=== PATIENT | male | born 1950 | race Caucasian/White ===

== ENCOUNTER 2021-04-03 19:43 | Inpatient (IN) | payer MEDICARE, OTHER ==
[~2021-04-03 19:43] MED LIST: Iopamidol-370 76% 500 ML 1 ML ONE
[2021-04-03 19:57] LABS: #Eosinphils 0.2 thou/uL (0.0-0.7); #Lymphocytes 3.3 thou/uL (1.20-3.40); #Monocytes 0.8 thou/uL (0.11-0.59); #Neutrophils 3.5 thou/uL (1.40-6.50); %Basophils 0.6 % (0.0-1.0); %Lymphocytes 41.7 % (21.0-51.0); %Monocytes 10.7 % (0.0-10.0); %Neutrophils 43.9 % (42.0-75.0); Hemoglobin 15.6 g/dL (14.0-18.0); Mean Corpuscular HGB CONC 34.6 g/dL (32.0-36.0); Mean Corpuscular Hemoglobin 33.5 pg (27.0-31.0); Mean Corpuscular Volume 96.7 fL (78.0-98.0); Red Blood Cell (RBC) Count 4.65 mill/uL (4.70-6.10); White Blood Cell (WBC) Count 7.9 thou/uL (4.8-10.8)
[2021-04-03 20:07] LABS: PTT 23.1 sec (22.9-36.1); Prothrombin Time 13.6 sec (12.0-14.7)
[2021-04-03 20:11] LABS: ALT (SGPT) 12 U/L (8-55); AST (SGOT) 17 U/L (5-34); Albumin 4.5 g/dL (3.4-4.8); Alkaline Phosphatase 38 U/L (40-110); Anion Gap 18 mmol/L (10-20); BUN (Urea Nitrogen) 28 mg/dL (8.4-25.7); Bilirubin, Total 0.6 mg/dL (0.2-1.2); Calc. Creatinine Clearance 0 mL/min (70-130); Calcium 9.4 mg/dL (7.8-10.44); Carbon Dioxide 15 mmol/L (23-31); Chloride 108 mmol/L (98-107); Globulin 2.5 g/dL (2.4-3.5); Glucose 184 mg/dL (80-115); Potassium 3.4 mmol/L (3.5-5.1); Sodium 138 mmol/L (136-145)
[2021-04-03 20:12] LABS: Mean Platelet Volume 8.8 fL (7.4-10.4); Platelet Count 118 thou/uL (130-400)
[2021-04-03] MEDS ORDERED: Sodium Chloride 0.9% 10 ML ONE (20:12)
[2021-04-03 20:13] LABS: Platelet Morphology Comment Appears Decreased; RBC Morphology Normal
[2021-04-03] MEDS ORDERED: Fentanyl CADD 100 ML IV SCH (20:15)
[2021-04-03] MEDS ORDERED: Fentanyl 250 MCG/5 ML VIAL ONE (20:18)
[2021-04-03] MEDS ORDERED: manNITOL 20% 500 ML ONE (20:18)
[2021-04-03] MEDS ORDERED: levETIRAcetam in NS 100 ML ONE (20:20)
[2021-04-03] MEDS ORDERED: Albumin 5% 500 ML ONE (20:20)
[2021-04-03] MEDS ORDERED: levETIRAcetam 500 MG/100 ML PREMIX BAG ONE (20:20)
[2021-04-03 20:22] LABS: Acetaminophen Less than 6.0 mcg/mL (10.0-30.0); Alcohol 95 mg/dL (Less than 10); Salicylate Less than 8.0 mg/dL (15.0-30.0)
[2021-04-03 20:23] LABS: Analyzer IN Cardio ER; Base Excess (BEa) -8.4 mEq/L (-2.0 to +3.0); CO2 Tension 30.6 mmHg (35.0-45.0); Carboxyhemoglobin (COHb) 0.2 gm% (0.0-3.0); Hemoglobin (Hb) 14.8 g/dL (14.0-18.0); O2 Tension (PaO2), arterial 254.4 mmHg (> 80.0); Potassium - ABG Lab 3.22 mmol/L (3.70-5.30); pH, Arterial 7.34 (7.35-7.45)
[2021-04-03] MEDS ORDERED: Propofol 1,000 MG/100 ML VIAL IV ONE (20:27)
[2021-04-03] MEDS ORDERED: Fentanyl 100 MCG/2 ML VIAL ONE (20:30)
[2021-04-03 20:37] LABS: Bilirubin Negative (Negative); Blood, Urine Negative (Negative); Clarity Clear (Clear); Glucose, Urine (Dipstick) Greater than 1000 mg/dL (Negative); Ketone, Urine Negative (Negative); Leukocyte Negative Leu/uL (Negative); Nitrite Negative (Negative); Protein, Urine (Dipstick) Negative (Neg-Trace); Specific Gravity, Urine 1.037 (1.002-1.036); Urobilinogen Normal mg/dL (Less than 2)
[2021-04-03 20:40] LABS: Puncture Site LRA
[2021-04-03 20:44] LABS: Amphetamine Not Detected (NotDetected); Barbiturates Screen Not Detected (NotDetected); Benzodiazepine Screen Not Detected (NotDetected); Cocaine Metabolite Screen Not Detected (NotDetected); Medtox Control Line Valid? VALID (VALID); Medtox Reader # READER 4; Methadone Not Detected (NotDetected); Methamphetamine Not Detected (NotDetected); Opiate Screen Not Detected (NotDetected); Oxycodone Screen Not Detected (NotDetected); Phencyclidine (PCP) Not Detected (NotDetected); THC/Cannabinoid Screen Not Detected (NotDetected); Tricyclic Screen Not Detected (NotDetected)
[2021-04-03] MEDS ORDERED: Vecuronium 10 MG VIAL ONE (20:57)
[2021-04-03] MEDS ORDERED: PHENYLEPHRINE-NS 100 MCG/ML 10 ML SYRINGE ONE (20:57)
[2021-04-03] MEDS ORDERED: Dexamethasone 20 MG/5 ML VIAL ONE (20:57)
[2021-04-03] MEDS ORDERED: Dextrose 5% in Water 1,000 ML IV PRN (22:07)
[2021-04-03] MEDS ORDERED: Dextrose 50% Abboject 50 ML SYRINGE SLOW IVP PRN (22:07)
[2021-04-03] MEDS ORDERED: Ventilator Sedation Protocol 1 EACH FS SCH (22:07)
[2021-04-03] MEDS ORDERED: Ondansetron PF 4 MG/2 ML Vial IVP PRN (22:07)
[2021-04-03] MEDS ORDERED: HumaLOG 300 UNITS/3 ML VIAL SC PRN (22:07)
[2021-04-03] MEDS ORDERED: Ondansetron ODT 4 MG TAB PO PRN (22:07)
[2021-04-03 22:32] LABS: Magnesium 1.6 mg/dL (1.6-2.6)
[2021-04-03 22:51] LABS: SARS-CoV-2 NAA Rapid Test Not Detected (NotDetected)
[2021-04-03] MEDS: Sodium Chloride 0.9% 1,000 ML IV SCH (23:17)
[2021-04-03 23:35] LABS: Actual Bicarbonate (HCO3a) 17.8 mEq/L (22-28); Base Excess (BEa) -6.8 mEq/L (-2.0 to +3.0); CO2 Tension 33.2 mmHg (35.0-45.0); Calcium, Ionized (arterial) 1.18 mmol/L (1.12-1.30); Hemoglobin (Hb) 14.5 g/dL (14.0-18.0); O2 Tension (PaO2), arterial 129.3 mmHg (> 80.0); Potassium - ABG Lab 3.77 mmol/L (3.70-5.30); pH, Arterial 7.35 (7.35-7.45)
[2021-04-03 23:45] LABS: Puncture Site LRA
[2021-04-04] MEDS ORDERED: Fentanyl CADD 100 ML ONE (00:22)
[2021-04-04] MEDS: HumaLOG 300 UNITS/3 ML VIAL SC PRN ×2 (00:25→04:24)
[2021-04-04 04:23] LABS: #Lymphocytes 1.2 thou/uL (1.20-3.40); #Monocytes 1.2 thou/uL (0.11-0.59); %Basophils 0.2 % (0.0-1.0); %Eosinophils 0.1 % (0.0-10.0); %Lymphocytes 6.8 % (21.0-51.0); %Monocytes 6.9 % (0.0-10.0); Hemoglobin 15.4 g/dL (14.0-18.0); Mean Corpuscular HGB CONC 33.7 g/dL (32.0-36.0); Mean Corpuscular Hemoglobin 32.9 pg (27.0-31.0); Mean Corpuscular Volume 97.5 fL (78.0-98.0); Mean Platelet Volume 9.5 fL (7.4-10.4); Platelet Count 140 thou/uL (130-400); Red Blood Cell (RBC) Count 4.67 mill/uL (4.70-6.10); White Blood Cell (WBC) Count 17.4 thou/uL (4.8-10.8)
[2021-04-04] MEDS: Sodium Chloride 0.9% 1,000 ML IV SCH ×3 (05:04→16:23)
[2021-04-04] MEDS ORDERED: CEFAZOLIN 2 GM in Premix Bag 1 BAG IVPB SCH (06:00)
[2021-04-04] MEDS ORDERED: Insulin Regular 300 UNITS/3 ML VIAL SC PRN ×2 (06:40)
[2021-04-04 06:54] LABS: ALV-art Gradient 107.175 mmHg (0-20); Actual Bicarbonate (HCO3a) 16.8 mEq/L (22-28); Base Excess (BEa) -6.9 mEq/L (-2.0 to +3.0); CO2 Tension 29.7 mmHg (35.0-45.0); Calcium, Ionized (arterial) 1.18 mmol/L (1.12-1.30); Carboxyhemoglobin (COHb) 0.7 gm% (0.0-3.0); Hemoglobin (Hb) 15.4 g/dL (14.0-18.0); O2 Tension (PaO2), arterial 140.9 mmHg (> 80.0); Potassium - ABG Lab 3.77 mmol/L (3.70-5.30); Puncture Site LRA; pH, Arterial 7.37 (7.35-7.45)
[2021-04-04 07:39] LABS: Chloride 107 mmol/L (98-107); Potassium 3.8 mmol/L (3.5-5.1); Sodium 140 mmol/L (136-145)
[2021-04-04 07:40] LABS: Calcium 9.2 mg/dL (7.8-10.44); Glucose 271 mg/dL (80-115)
[2021-04-04 07:41] LABS: Anion Gap 23 mmol/L (10-20); Carbon Dioxide 14 mmol/L (23-31)
[2021-04-04 07:43] LABS: Calc. Creatinine Clearance 64 mL/min (70-130)
[2021-04-04 07:44] LABS: BUN (Urea Nitrogen) 28 mg/dL (8.4-25.7)
[2021-04-04 07:45] LABS: Magnesium 1.7 mg/dL (1.6-2.6)
[2021-04-04] MEDS: Famotidine/PF 20 mg/2ml Vial SLOW IVP SCH ×2 (08:13→20:44)
[2021-04-04 08:25] LABS: Phosphorus 5.4 mg/dL (2.3-4.7)
[2021-04-04] MEDS: HUMULIN R 100 UNITS in Sodium Chloride 0.9% 100 ML IVPB SCH (08:46)
[2021-04-04] MEDS ORDERED: Calcium Chloride 1 GM/10 ML Abboject SYRINGE IVP SCH (11:15)
[2021-04-04 11:38] LABS: Actual Bicarbonate (HCO3a) 18.2 mEq/L (22-28); Base Excess (BEa) -5.4 mEq/L (-2.0 to +3.0); CO2 Tension 30.7 mmHg (35.0-45.0); Calcium, Ionized (arterial) 1.13 mmol/L (1.12-1.30); Carboxyhemoglobin (COHb) 0.6 gm% (0.0-3.0); Hemoglobin (Hb) 14.9 g/dL (14.0-18.0); O2 Tension (PaO2), arterial 134.2 mmHg (> 80.0); Potassium - ABG Lab 3.55 mmol/L (3.70-5.30); pH, Arterial 7.39 (7.35-7.45)
[2021-04-04] MEDS ORDERED: Acetaminophen 650 MG/20.3 ML UDCUP PO SCH (12:00)
[2021-04-04] MEDS ORDERED: Calcium Chloride 13.6 MEQ in Sodium Chloride 0.9% 100 ML IVPB SCH (12:15)
[2021-04-04] MEDS: Acetaminophen 650 MG/20.3 ML UDCUP PO SCH ×3 (12:15→22:33)
[2021-04-04 14:13] LABS: ALV-art Gradient 112.625 mmHg (0-20); Puncture Site LRA
[2021-04-04 15:19] LABS: Magnesium 1.6 mg/dL (1.6-2.6); Phosphorus 3.1 mg/dL (2.3-4.7)
[2021-04-04] MEDS ORDERED: Magnesium Sulfate 4 GM in Sodium Chloride 0.9% 250 ML 250 ML IVPB SCH (15:45)
[2021-04-04] MEDS ORDERED: Albumin 5% 500 ML ONE (15:55)
[2021-04-04] MEDS ORDERED: Calcium Chloride 1 GM/10 ML Abboject SYRINGE ONE (16:10)
[2021-04-04] MEDS ORDERED: Piperacillin/Tazobactam 3.375 GM in Sodium Chloride 0.9% 100 ML IVPB SCH (22:00)
[2021-04-05] MEDS: Sodium Chloride 0.9% 1,000 ML IV SCH ×3 (00:44→21:31)
[2021-04-05] MEDS: Piperacillin/Tazobactam 3.375 GM in Sodium Chloride 0.9% 100 ML IVPB SCH ×3 (01:22→17:09)
[2021-04-05] MEDS: HUMULIN R 100 UNITS in Sodium Chloride 0.9% 100 ML IVPB SCH (02:19)
[2021-04-05 03:57] LABS: #Lymphocytes 0.8 thou/uL (1.20-3.40); #Monocytes 1.2 thou/uL (0.11-0.59); #Neutrophils 9.6 thou/uL (1.40-6.50); %Eosinophils 0.2 % (0.0-10.0); %Lymphocytes 6.7 % (21.0-51.0); %Monocytes 10.3 % (0.0-10.0); %Neutrophils 82.7 % (42.0-75.0); Hemoglobin 12.6 g/dL (14.0-18.0); Mean Corpuscular HGB CONC 33.4 g/dL (32.0-36.0); Mean Corpuscular Hemoglobin 32.9 pg (27.0-31.0); Mean Corpuscular Volume 98.5 fL (78.0-98.0); Mean Platelet Volume 9.3 fL (7.4-10.4); Platelet Count 121 thou/uL (130-400); RBC Distribution Width 12.3 % (11.5-14.5); Red Blood Cell (RBC) Count 3.82 mill/uL (4.70-6.10); White Blood Cell (WBC) Count 11.6 thou/uL (4.8-10.8)
[2021-04-05 04:14] LABS: Anion Gap 13 mmol/L (10-20); BUN (Urea Nitrogen) 29 mg/dL (8.4-25.7); Calc. Creatinine Clearance 62 mL/min (70-130); Calcium 9.6 mg/dL (7.8-10.44); Carbon Dioxide 21 mmol/L (23-31); Chloride 115 mmol/L (98-107); Glucose 155 mg/dL (80-115); Magnesium 2.3 mg/dL (1.6-2.6); Phosphorus 2.6 mg/dL (2.3-4.7); Potassium 3.2 mmol/L (3.5-5.1); Sodium 146 mmol/L (136-145)
[2021-04-05] MEDS: Acetaminophen 650 MG/20.3 ML UDCUP PO SCH ×3 (05:30→17:09)
[2021-04-05] MEDS: Famotidine/PF 20 mg/2ml Vial SLOW IVP SCH ×2 (08:36→21:25)
[2021-04-05] MEDS ORDERED: Morphine 2 MG/ML VIAL SLOW IVP PRN (08:39)
[2021-04-05] MEDS ORDERED: Lorazepam 2 MG/ML VIAL ONE (08:49)
[2021-04-05] MEDS ORDERED: Potassium Phosphate 30 MMOL in Sodium Chloride 0.9% 250 ML 250 ML IVPB SCH (09:00)
[2021-04-05] MEDS ORDERED: Lorazepam 2 MG/ML VIAL SLOW IVP SCH (09:00)
[2021-04-05] MEDS ORDERED: niCARdipine 25 MG in Sodium Chloride 0.9% 250 ML 250 ML IVPB SCH (09:00)
[2021-04-05] MEDS: levETIRAcetam in NS 1,000 MG in Premix Bag 1 BAG IVPB SCH ×2 (09:49→21:26)
[2021-04-05] MEDS: Lorazepam 2 MG/ML VIAL SLOW IVP PRN (17:45)
[2021-04-06] MEDS: Acetaminophen 650 MG/20.3 ML UDCUP PO SCH ×4 (00:04→16:01)
[2021-04-06] MEDS: Lorazepam 2 MG/ML VIAL SLOW IVP PRN ×2 (01:07→22:42)
[2021-04-06] MEDS: Piperacillin/Tazobactam 3.375 GM in Sodium Chloride 0.9% 100 ML IVPB SCH ×3 (01:13→16:01)
[2021-04-06 04:56] LABS: #Lymphocytes 0.5 thou/uL (1.20-3.40); #Monocytes 0.5 thou/uL (0.11-0.59); #Neutrophils 5.4 thou/uL (1.40-6.50); %Eosinophils 0.2 % (0.0-10.0); %Lymphocytes 8.4 % (21.0-51.0); %Monocytes 7.4 % (0.0-10.0); Hemoglobin 10.9 g/dL (14.0-18.0); Mean Corpuscular Hemoglobin 33.3 pg (27.0-31.0); Mean Platelet Volume 9.4 fL (7.4-10.4); Platelet Count 90 thou/uL (130-400); RBC Distribution Width 12.3 % (11.5-14.5); Red Blood Cell (RBC) Count 3.27 mill/uL (4.70-6.10); White Blood Cell (WBC) Count 6.4 thou/uL (4.8-10.8)
[2021-04-06 05:05] LABS: Anion Gap 14 mmol/L (10-20); BUN (Urea Nitrogen) 29 mg/dL (8.4-25.7); Calc. Creatinine Clearance 69 mL/min (70-130); Calcium 8.9 mg/dL (7.8-10.44); Carbon Dioxide 21 mmol/L (23-31); Chloride 123 mmol/L (98-107); Glucose 218 mg/dL (80-115); Magnesium 5.7 mg/dL (1.6-2.6); Phosphorus 2.5 mg/dL (2.3-4.7); Potassium 3.8 mmol/L (3.5-5.1); Sodium 154 mmol/L (136-145)
[2021-04-06] MEDS: Sodium Chloride 0.9% 1,000 ML IV SCH (05:42)
[2021-04-06] MEDS ORDERED: HumaLOG 300 UNITS/3 ML VIAL SC PRN (07:45)
[2021-04-06 08:48] LABS: Chloride 124 mmol/L (98-107); Potassium 3.6 mmol/L (3.5-5.1); Sodium 155 mmol/L (136-145)
[2021-04-06 08:54] LABS: BUN (Urea Nitrogen) 27 mg/dL (8.4-25.7); Calc. Creatinine Clearance 76 mL/min (70-130); Calcium 8.8 mg/dL (7.8-10.44); Carbon Dioxide Greater than 37 mmol/L (23-31); Glucose 172 mg/dL (80-115); Magnesium 2.2 mg/dL (1.6-2.6); Phosphorus 1.9 mg/dL (2.3-4.7)
[2021-04-06] MEDS: Famotidine/PF 20 mg/2ml Vial SLOW IVP SCH ×2 (09:57→21:39)
[2021-04-06] MEDS: levETIRAcetam in NS 1,000 MG in Premix Bag 1 BAG IVPB SCH ×2 (09:57→21:38)
[2021-04-06] MEDS: HumaLOG 300 UNITS/3 ML VIAL SC PRN ×3 (11:04→21:58)
[2021-04-06] MEDS: hydrALAZINE 20 MG/ML VIAL SLOW IVP PRN ×3 (12:29→22:03)
[2021-04-06] MEDS: 1/2 NS w/KCL 20 mEq 1,000 ML IV SCH (13:24)
[2021-04-06 16:31] LABS: BUN (Urea Nitrogen) 28 mg/dL (8.4-25.7); Calc. Creatinine Clearance 82 mL/min (70-130); Chloride 124 mmol/L (98-107); Glucose 217 mg/dL (80-115); Magnesium 2.2 mg/dL (1.6-2.6); Potassium 3.5 mmol/L (3.5-5.1); Sodium 158 mmol/L (136-145)
[2021-04-06 16:46] LABS: Phosphorus 1.6 mg/dL (2.3-4.7)
[2021-04-06 17:35] LABS: Carbon Dioxide 16 mmol/L (23-31)
[2021-04-07] MEDS: 1/2 NS w/KCL 20 mEq 1,000 ML IV SCH ×2 (00:15→05:30)
[2021-04-07] MEDS: Acetaminophen 650 MG/20.3 ML UDCUP PO SCH ×6 (00:16→23:38)
[2021-04-07] MEDS: HumaLOG 300 UNITS/3 ML VIAL SC PRN ×6 (00:28→21:33)
[2021-04-07] MEDS: Piperacillin/Tazobactam 3.375 GM in Sodium Chloride 0.9% 100 ML IVPB SCH ×3 (01:30→16:28)
[2021-04-07 04:09] LABS: Hemoglobin 11.4 g/dL (14.0-18.0); Mean Corpuscular HGB CONC 33.3 g/dL (32.0-36.0); Mean Corpuscular Hemoglobin 33.4 pg (27.0-31.0); Mean Platelet Volume 9.5 fL (7.4-10.4); Platelet Count 104 thou/uL (130-400); RBC Distribution Width 12.3 % (11.5-14.5); Red Blood Cell (RBC) Count 3.41 mill/uL (4.70-6.10); White Blood Cell (WBC) Count 7.6 thou/uL (4.8-10.8)
[2021-04-07] MEDS: hydrALAZINE 20 MG/ML VIAL SLOW IVP PRN ×2 (04:25→16:28)
[2021-04-07 04:28] LABS: Eosinophils 1 % (0-10); Lymphocytes 9 % (21-51); MDiff Complete? YES; Metamyelocyte 3 % (0-0); Monocytes 4 % (0-10); Neutrophil 83 % (42-75); Platelet Morphology Comment Appears Decreased
[2021-04-07 04:35] LABS: Anion Gap 20 mmol/L (10-20); BUN (Urea Nitrogen) 30 mg/dL (8.4-25.7); Calc. Creatinine Clearance 75 mL/min (70-130); Calcium 9.4 mg/dL (7.8-10.44); Carbon Dioxide 20 mmol/L (23-31); Chloride 125 mmol/L (98-107); Glucose 243 mg/dL (80-115); Magnesium 2.4 mg/dL (1.6-2.6); Phosphorus 1.7 mg/dL (2.3-4.7); Potassium 3.6 mmol/L (3.5-5.1); Sodium 161 mmol/L (136-145)
[2021-04-07 04:43] VITALS: BMI 25.0
[2021-04-07] MEDS ORDERED: Potassium Phosphate 30 MMOL in Sodium Chloride 0.9% 250 ML 250 ML IVPB SCH (06:00)
[2021-04-07] MEDS: Potassium Chloride 20 MEQ in Lactated Ringer's 1,000 ML IV SCH ×3 (06:20→19:44)
[2021-04-07] MEDS: Famotidine/PF 20 mg/2ml Vial SLOW IVP SCH ×2 (07:29→19:42)
[2021-04-07] MEDS: levETIRAcetam in NS 1,000 MG in Premix Bag 1 BAG IVPB SCH ×2 (08:50→19:41)
[2021-04-08] MEDS: Piperacillin/Tazobactam 3.375 GM in Sodium Chloride 0.9% 100 ML IVPB SCH ×2 (01:50→07:51)
[2021-04-08] MEDS: HumaLOG 300 UNITS/3 ML VIAL SC PRN ×2 (02:38→05:47)
[2021-04-08] MEDS: Acetaminophen 650 MG/20.3 ML UDCUP PO SCH (05:46)
[2021-04-08] MEDS: Potassium Chloride 20 MEQ in Lactated Ringer's 1,000 ML IV SCH (05:47)
[2021-04-08 05:49] VITALS: TEMP 101.3
[2021-04-08] MEDS: hydrALAZINE 20 MG/ML VIAL SLOW IVP PRN (06:25)
[2021-04-08] MEDS: levETIRAcetam in NS 1,000 MG in Premix Bag 1 BAG IVPB SCH (07:50)
[2021-04-08] MEDS: Famotidine/PF 20 mg/2ml Vial SLOW IVP SCH (07:51)
[2021-04-08 08:10] VITALS: BP 139/45
[2021-04-08] MEDS ORDERED: Metamucil PACK PER TUBE SCH ×2 (09:30→21:00)
[2021-04-08] MEDS ORDERED: Morphine 4 MG/ML VIAL ONE (10:41)
[2021-04-08] MEDS: Dextrose 5% in Water 1,000 ML IV SCH ×2 (10:59→16:26)
[2021-04-08] MEDS ORDERED: Morphine 4 MG/ML VIAL SLOW IVP SCH (11:00)
[2021-04-08] MEDS: Morphine 4 MG/ML VIAL SLOW IVP PRN ×5 (15:24→20:23)
== END 2021-04-08 23:45 | disposition expired | DRG 25 ==
LOC: ERS 19:43 → EDBD 19:43 → SDC/OP 20:43 → CCU 22:07
PROVIDERS: ADMIT Specialist; ATTEND Specialist
PROC: 00C40ZZ Extirpation of Matter from Intracranial Subdural Space, Open Approach (ICD-10-PCS; principal; 2021-04-03)
PROC: 5A1955Z Respiratory Ventilation, Greater than 96 Consecutive Hours (ICD-10-PCS; 2021-04-03)
PROC: 0BH17EZ Insertion of Endotracheal Airway into Trachea, Via Natural or Artificial Opening (ICD-10-PCS; 2021-04-03)
PROC: 0D9670Z Drainage of Stomach with Drainage Device, Via Natural or Artificial Opening (ICD-10-PCS; 2021-04-03)
DX: J69.0 Pneumonitis due to inhalation of food and vomit; J96.00 Acute respiratory failure, unspecified whether with hypoxia or hypercapnia; S12.110A Anterior displaced Type II dens fracture, initial encounter for closed fracture; E87.0 Hyperosmolality and hypernatremia; R56.1 Post traumatic seizures; Z51.5 Encounter for palliative care; Z66 Do not resuscitate; I10 Essential (primary) hypertension; E11.9 Type 2 diabetes mellitus without complications; I25.10 Atherosclerotic heart disease of native coronary artery without angina pectoris; R40.2342 Coma scale, best motor response, flexion withdrawal, at arrival to emergency department; R40.2112 Coma scale, eyes open, never, at arrival to emergency department; R40.2212 Coma scale, best verbal response, none, at arrival to emergency department; W10.8XXA Fall (on) (from) other stairs and steps, initial encounter; Z20.822 Contact with and (suspected) exposure to COVID-19; Y92.009 Unspecified place in unspecified non-institutional (private) residence as the place of occurrence of the external cause; Z79.899 Other long term (current) drug therapy; Z79.84 Long term (current) use of oral hypoglycemic drugs; Z86.73 Personal history of transient ischemic attack (TIA), and cerebral infarction without residual deficits; Z78.1 Physical restraint status; Z95.1 Presence of aortocoronary bypass graft; B96.89 Other specified bacterial agents as the cause of diseases classified elsewhere
CPT/HCPCS: 31500; 36415; 36416; 36600; 51702; 70450; 71045; 71260; 72125; 74177; 80048; 80053; 80306; 80307; 81003; 82805; 83605; 83735; 83930; 83935; 84100; 84146; 84300; 85025; 85610; 85730; 87040; 87070; 87077; 87086; 87186; 87205; 94002; 94003; 94760; 95816; 95819; 95957; 96365; 96368; 96375; C1713; G0390; J0360; J0690; J1100; J1815; J1953; J2060; J2270; J2405; J2543; J2704; J3010; J3475; J3480; J3490; J7050; J7120; J7799; P9045; Q9967; S0028; U0002; U0005